=== PATIENT | female | born 1955 | race American Indian/Alaskan Native ===

== ENCOUNTER 2018-01-26 06:08 | Outpatient (CLI) | payer BC ==
[2018-01-26 07:12] LABS: Basophils % (Auto) 0.7 % (0.0-1.8); Eosinophils % (Auto) 0.3 % (0.0-4.3); Hematocrit 36.5 % (30.3-42.9); Lymphocytes # (Auto) 1.7 K/mm3 (1.2-5.4); Lymphocytes % (Auto) 33.4 % (13.4-35.0); Mean Corpuscular HGB Conc 33 % (30-34); Mean Corpuscular Volume 75 fl (79-97); Monocytes # (Auto) 0.3 K/mm3 (0.0-0.8); Monocytes % (Auto) 6.1 % (0.0-7.3); Platelet Count 133 K/mm3 (140-440); Red Blood Count 4.88 M/mm3 (3.65-5.03); Red Cell Distribution Width 15.7 % (13.2-15.2)
[2018-01-26 07:17] LABS: Mean Corpuscular Hemoglobin 25 pg (28-32)
[2018-01-26 07:39] LABS: Alanine Aminotransferase 16 units/L (7-56); Albumin 4.1 g/dL (3.9-5); BUN/Creatinine Ratio 21; Blood Urea Nitrogen 15 mg/dL (7-17); Calcium 9.1 mg/dL (8.4-10.2); Chol/HDL Ratio 2.57 %; HDL Cholesterol 71 mg/dL (40-59); Hemolysis Index 0; LDL Cholesterol,Direct 105 mg/dL (50-130)
== END 2018-01-26 06:09 | disposition home or self-care (01) ==
LOC: EDBD 06:08 → LAB 06:08
DX: Z00.01 Encounter for general adult medical examination with abnormal findings (principal); I10 Essential (primary) hypertension; R79.89 Other specified abnormal findings of blood chemistry; R53.83 Other fatigue
CPT/HCPCS: 36415; 80053; 80061; 82306; 83036; 84436; 84443; 85025

== ENCOUNTER 2018-02-09 07:38 | Outpatient (CLI) | payer BC ==
--- NOTE | 2018-02-09 08:39 | Mammography Report ---
BILATERAL MAMMOGRAM: FINDINGS: The breasts are almost entirely fat (<25% glandular). No mass, distortion, suspicious calcification, or skin change is seen. CAD was utilized. IMPRESSION: Negative mammogram. There is no mammographic evidence of malignancy. RECOMMENDATION: Follow-up per ACS guidelines. BI-RADS CATEGORY: 1 = Negative ACR BI-RADS MAMMOGRAPHIC CODES: 0 = Needs additional imaging evaluation; 1 = Negative; 2 = Benign; 3 = Probably benign; 4 = Suspicious; 5 = Malignant; 6 = Known biopsy-proven malignancy COMMENT: 1. Dense breast tissue, i.e., adenosis, fibrocystic changes, etc., may obscure an underlying neoplasm. 2. Approximately 10% of cancers are not detected with mammography. 3. A negative mammography report should not delay biopsy if a clinically suspicious mass is present. COMMENT: Patient follow-up letters are generated in [employer].
== END 2018-02-09 07:39 | disposition home or self-care (01) ==
LOC: MAMMO 07:38
PROVIDERS: ATTEND Internal Medicine
DX: Z12.31 Encounter for screening mammogram for malignant neoplasm of breast (principal)
CPT/HCPCS: 77067

== ENCOUNTER 2019-04-05 08:00 | Outpatient (CLI) | payer BC ==
--- NOTE | 2019-04-05 11:27 | Mammography Report ---
BILATERAL DIGITAL SCREENING MAMMOGRAM with CAD: 04/05/19 08:00:00 CLINICAL: Routine screening. COMPARISON: 02/09/18 FINDINGS: There are bilateral scattered areas of fibroglandular density.No mass, architectural distortion or suspicious calcifications. IMPRESSION: No mammographic evidence of malignancy. BI-RADS CATEGORY: 1 -- Negative RECOMMENDATION: Routine mammographic screening in one year. COMMENT: Patient follow-up letters are generated by our [employer] application.
== END 2019-04-05 08:01 | disposition home or self-care (01) ==
LOC: MAMMO 08:00
PROVIDERS: ATTEND Internal Medicine
DX: Z12.31 Encounter for screening mammogram for malignant neoplasm of breast (principal); I10 Essential (primary) hypertension
CPT/HCPCS: 77067

== ENCOUNTER 2020-01-07 08:16 | Outpatient (CLI) | payer BC ==
--- NOTE | 2020-01-07 09:13 | XRay Report ---
RIGHT ANKLE HISTORY: Pain. COMPARISON: None. TECHNIQUE: 3 views of the right ankle obtained. FINDINGS: Bones: Status post ORIF of remote distal tibial and fibular fractures. Normal appearance of the hardw are. No acute fracture or dislocation. Joint spaces: Tibiotalar joint arthritis. Soft tissues: No significant abnormality. Additional findings: None. IMPRESSION: 1. Status post ORIF of remote distal tibial and fibular fractures. 2. No acute findings. 3. Tibiotalar joint arthritis. Signer Name: Julius Garcia MD Signed: 01/07/2020 9:09 AM Workstation Name: [id number]
== END 2020-01-07 08:17 | disposition home or self-care (01) ==
LOC: XRAY 08:16 → LAB 08:16 → XRAY 08:17
PROVIDERS: ATTEND Orthopaedic Surgery
DX: M13.871 Other specified arthritis, right ankle and foot (principal)

== ENCOUNTER 2020-11-23 11:13 | Outpatient (CLI) | payer BC ==
[2020-11-23 12:22] LABS: Basophils % (Auto) 0.7 % (0.0-1.8); Eosinophils % (Auto) 0.6 % (0.0-4.3); Hematocrit 35.5 % (30.3-42.9); Hemoglobin 11.7 gm/dl (10.1-14.3); Lymphocytes # (Auto) 1.9 K/mm3 (1.2-5.4); Lymphocytes % (Auto) 43.3 % (13.4-35.0); Mean Corpuscular HGB Conc 33 % (30-34); Mean Corpuscular Volume 78 fl (79-97); Monocytes # (Auto) 0.5 K/mm3 (0.0-0.8); Monocytes % (Auto) 10.6 % (0.0-7.3); Platelet Count 138 K/mm3 (140-440); Red Blood Count 4.56 M/mm3 (3.65-5.03); Red Cell Distribution Width 15.2 % (13.2-15.2)
[2020-11-23 12:27] LABS: Alanine Aminotransferase 17 units/L (7-56); Blood Urea Nitrogen 13 mg/dL (7-17); Chol/HDL Ratio 2.57 %; HDL Cholesterol 61 mg/dL (40-59); Hemolysis Index 3; LDL Cholesterol,Direct 77 mg/dL (50-130)
[2020-11-23 12:28] LABS: BUN/Creatinine Ratio 22
--- NOTE | 2020-11-23 12:51 | XRay Report ---
CHEST 2 VIEWS INDICATION: Cough COMPARISON: None FINDINGS: SUPPORT DEVICES: None. HEART: Within normal limits. LUNGS/PLEURA: No acute air space or interstitial disease. No pneumothorax. ADDITIONAL FINDINGS: None. IMPRESSION: 1. No acute findings. Signer Name: German Cottrell MD Signed: 11/23/2020 12:45 PM Workstation Name: [id number]
[2020-11-23 13:22] LABS: Hepatitis B Surface Antigen Non-Reactive (Negative); Hepatitis C Virus Antibody Non-Reactive (NonReactive)
== END 2020-11-23 11:14 | disposition home or self-care (01) ==
LOC: XRAY 11:13
PROVIDERS: ATTEND Internal Medicine
DX: Z00.00 Encounter for general adult medical examination without abnormal findings (principal); R53.83 Other fatigue; I10 Essential (primary) hypertension
CPT/HCPCS: 36415; 71046; 80053; 80061; 80074; 82306; 83036; 84436; 84443; 85025

== ENCOUNTER 2022-04-06 07:41 | Outpatient (CLI) | payer BC ==
[2022-04-06 08:26] LABS: Alanine Aminotransferase 20 units/L (7-56); Albumin 4.9 g/dL (3.9-5); BUN/Creatinine Ratio 21; Blood Urea Nitrogen 17 mg/dL (7-17); Calcium 9.5 mg/dL (8.4-10.2); HDL Cholesterol 72 mg/dL (40-59); Hemolysis Index 0; LDL Cholesterol,Direct 80 mg/dL (50-130)
== END 2022-04-06 07:42 | disposition home or self-care (01) ==
LOC: LAB 07:41
PROVIDERS: ATTEND Internal Medicine
DX: Z00.00 Encounter for general adult medical examination without abnormal findings (principal); I10 Essential (primary) hypertension; F41.9 Anxiety disorder, unspecified; M10.9 Gout, unspecified
CPT/HCPCS: 36415; 80053; 80061; 84436; 84443; 84550

== ENCOUNTER 2022-05-18 07:54 | Outpatient (CLI) | payer BC ==
[2022-05-18 08:48] LABS: BUN/Creatinine Ratio 21; Blood Urea Nitrogen 17 mg/dL (7-17); Calcium 9.5 mg/dL (8.4-10.2); Hemolysis Index 2; Uric Acid 5.2 mg/dL (3.5-7.6)
== END 2022-05-18 07:55 | disposition home or self-care (01) ==
LOC: LAB 07:54
PROVIDERS: ATTEND Internal Medicine
DX: M10.9 Gout, unspecified (principal)
CPT/HCPCS: 36415; 80048; 84550